=== PATIENT | female | born 1985 | race Caucasian/White ===

== ENCOUNTER 2016-07-01 09:53 | Emergency (ER) | payer OTHER ==
[2016-07-01] MEDS ORDERED: cloNIDine HCL 0.2 MG TAB PO STA (10:18)
[2016-07-01] MEDS ORDERED: METOCLOPRAMIDE 5 MG/ML 2 ML VIAL IVP STA (10:19)
[2016-07-01] MEDS ORDERED: diphenhydrAMINE 50 MG/ML 1 ML VIAL IVP STA (10:19)
[2016-07-01] MEDS ORDERED: KETOROLAC 30 MG/ML 1 ML VIAL IVP STA (10:19)
--- NOTE | 2016-07-01 10:24 | ED ---
Headache HPI - General Chief Complaint: Headache Stated Complaint: Headache Time Seen by Provider: 07/01/16 10:12 Source: RN notes reviewed Mode of arrival: ambulatory Limitations: no limitations - History of Present Illness Initial Comments: Patient is a 30-year-old female presents to the emergency room for evaluation of migraine headache. Patient states migraine began yesterday. Patient does state that she is on 0.2 of Catapres twice a day and misplaced her medication on Thursday. Patient states she's been without blood pressure medication since Thursday. Patient states that she managed to find one blood pressure pill in her purse yesterday and took it. Patient states last time she was unable to take her blood pressure medication for a few days she developed a headache similar to this. Patient states she is having a 7 out of 10 headache. Patient states she's been taking [id number] NSAIDs and Excedrin with no relief of symptoms. Patient states she is nauseous. Patient does admit to photophobia and phonophobia. Patient denies any changes in vision, shortness of breath, chest pain, ear pain. - Related Data Home Medications Medication Instructions Recorded Confirmed Albuterol Inhaler [Ventolin Hfa 2 puff INHALATION RT-Q6H PRN 01/08/16 07/01/16 Inhaler] Previous Rx's Medication Instructions Recorded FLUoxetine HCL [PROzac] 40 mg PO DAILY #14 capsule 04/14/16 cloNIDine HCL [Catapres] 0.2 mg PO BID #30 tab 04/14/16 cloNIDine HCL [Catapres] 0.2 mg PO BID 14 Days 07/01/16 Allergies Allergy/AdvReac Type Severity Reaction Status Date / Time No Known Allergies Allergy Verified 07/01/16 10:26 Review of Systems ROS Statement: Those systems with pertinent positive or pertinent negative responses have been documented in the HPI. ROS Other: All systems not noted in ROS Statement are negative. Past Medical History Past Medical History: Asthma, Hypertension Additional Past Medical History / Comment(s): MIGRAINE History of Any Multi-Drug Resistant Organisms: MRSA Date of last positivie culture/infection: 2009 MDRO Source:: foot Past Surgical History: No Surgical Hx Reported Past Psychological History: Depression Smoking Status: Current every day smoker Past Alcohol Use History: None Reported Past Drug Use History: None Reported General Exam - General Exam Comments Initial Comments: Sitting in exam room, no acute distress. Limitations: no limitations General appearance: alert, in no apparent distress Head exam: Present: atraumatic, normocephalic, normal inspection Eye exam: Present: normal appearance ENT exam: Present: normal exam Neck exam: Present: normal inspection Respiratory exam: Present: normal lung sounds bilaterally, respiratory distress Cardiovascular Exam: Present: normal rhythm, tachycardia, normal heart sounds Extremities exam: Present: normal inspection Neurological exam: Present: alert, oriented X3, CN II-XII intact, normal gait Expanded Speech: Present: fluid speech Cranial nerves: EOM's Intact: Normal Motor strength exam: RUE: 5, LUE: 5, RLE: 5, LLE: 5 Eye Response: (4) open spontaneously Motor Response: (6) obeys commands Verbal Response: (5) oriented Psychiatric exam: Present: normal affect, normal mood Skin exam: Present: warm, dry, intact, normal color. Absent: rash Course Vital Signs 07/01/16 07/01/16 07/01/16 09:56 11:32 12:00 Temperature 98.6 F Pulse Rate 130 H 115 H 93 Respiratory 16 16 15 Rate Blood Pressure 179/106 188/100 149/92 O2 Sat by Pulse 95 100 100 Oximetry Medical Decision Making - Medical Decision Making Patient is a 30-year-old female presents to the emergency room for evaluation of headache and high blood pressure. Patient's blood pressure on arrival was 179/106. Patient was given her normal dose of blood pressure medication. On reevaluation patient states she is feeling much better and headache has subsided. Patient's blood pressure has gone down to 149/92. Agreed to send patient home with prescription for her blood pressure medication until she can follow-up with her primary care provider. Patient states she understands everything that was discussed with her. Return parameters discussed. Case discussed with Dr. Miller. - Lab Data Result diagrams: 07/01/16 11:29 07/01/16 11:29 Lab Results 07/01/16 07/01/16 Range/Units 11:29 11:29 WBC 7.8 (3.8-10.6) k/uL RBC 5.41 H (3.80-5.40) m/uL Hgb 14.4 (11.4-16.0) gm/dL Hct 46.2 H (34.0-46.0) % MCV 85.4 (80.0-100.0) fL MCH 26.7 (25.0-35.0) pg MCHC 31.3 (31.0-37.0) g/dL RDW 16.4 H (11.5-15.5) % Plt Count 326 (150-450) k/uL Neutrophils % 49 % Lymphocytes % 40 % Monocytes % 6 % Eosinophils % 2 % Basophils % 0 % Neutrophils # 3.8 (1.3-7.7) k/uL Lymphocytes # 3.1 (1.0-4.8) k/uL Monocytes # 0.4 (0-1.0) k/uL Eosinophils # 0.1 (0-0.7) k/uL Basophils # 0.0 (0-0.2) k/uL Anisocytosis Slight Sodium 148 H (137-145) mmol/L Potassium 4.6 (3.5-5.1) mmol/L Chloride 109 H (98-107) mmol/L Carbon Dioxide 25 (22-30) mmol/L Anion Gap 14 mmol/L BUN 11 (7-17) mg/dL Creatinine 0.66 (0.52-1.04) mg/dL Est GFR (MDRD) Af Amer >60 (>60 ml/min/1.73 sqM) Est GFR (MDRD) Non-Af >60 (>60 ml/min/1.73 sqM) Glucose 97 (74-99) mg/dL Calcium 9.7 (8.4-10.2) mg/dL Total Bilirubin 0.6 (0.2-1.3) mg/dL AST 30 (14-36) U/L ALT 41 (9-52) U/L Alkaline Phosphatase 103 (38-126) U/L Total Protein 8.1 (6.3-8.2) g/dL Albumin 4.7 (3.5-5.0) g/dL Disposition Clinical Impression: Headache, Hypertension Disposition: HOME SELF-CARE Condition: Good Instructions: Hypertension (ED) Additional Instructions: Take medications as directed. Please follow up with primary care provider. If any new symptom arises, symptoms worsen or fever develops, return to ER as soon as possible. Prescriptions: cloNIDine HCL [Catapres] 0.2 mg PO BID 14 Days Referrals: Geo Capm MD [Primary Care Provider] - 1-2 days Time of Disposition: 12:14
[2016-07-01 11:48] LABS: Anisocytosis Slight; Basophils % (A) 0 %; CH 27.2; Eosinophils # (A) 0.1 k/uL (0-0.7); Eosinophils % (A) 2 %; HCT 46.2 % (34.0-46.0); HDW 2.78; HGB 14.4 gm/dL (11.4-16.0); Luc % (Auto) 4; Lymphocytes # (A) 3.1 k/uL (1.0-4.8); Lymphocytes % (A) 40 %; MCH 26.7 pg (25.0-35.0); MCHC 31.3 g/dL (31.0-37.0); MCV 85.4 fL (80.0-100.0); Mean Platelet Volume 8.1; Monocytes # (A) 0.4 k/uL (0-1.0); Monocytes % (A) 6 %; Neutrophils # (A) 3.8 k/uL (1.3-7.7); Neutrophils % (A) 49 %; RBC 5.41 m/uL (3.80-5.40); RDW 16.4 % (11.5-15.5); WBC 7.8 k/uL (3.8-10.6); WBC (Perox) 8.03
[2016-07-01 12:03] LABS: ALT 41 U/L (9-52); AST 30 U/L (14-36); Alkaline Phosphatase 103 U/L (38-126); Anion Gap 14 mmol/L; Blood Urea Nitrogen 11 mg/dL (7-17); Calcium 9.7 mg/dL (8.4-10.2); Carbon Dioxide 25 mmol/L (22-30); Chloride 109 mmol/L (98-107); Glucose 97 mg/dL (74-99); Non-African American GFR(MDRD) >60 (>60 ml/min/1.73 sqM); Potassium 4.6 mmol/L (3.5-5.1); Sodium 148 mmol/L (137-145); Total Bilirubin 0.6 mg/dL (0.2-1.3); Total Protein 8.1 g/dL (6.3-8.2)
[2016-07-01 12:25] VITALS: BP 144/95; PULSE 94; RESP 18; TEMP 98
== END 2016-07-01 12:30 | disposition home or self-care (01) ==
LOC: EC 09:53
DX: R51 Headache (principal); I10 Essential (primary) hypertension; R00.0 Tachycardia, unspecified; F32.9 Major depressive disorder, single episode, unspecified; F17.200 Nicotine dependence, unspecified, uncomplicated; Z79.899 Other long term (current) drug therapy
CPT/HCPCS: 99284; 96374; 96375 ×2; 36415; 80053; 85025; J1200; J2765; J1885

== ENCOUNTER 2016-07-30 13:08 | Emergency (ER) | payer OTHER ==
[2016-07-30] MEDS ORDERED: LORazepam 2 MG/ML SYRINGE IM STA (13:48)
[2016-07-30 13:58] VITALS: PULSE 140
[2016-07-30 13:59] VITALS: TEMP 97.3
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
[2016-07-30 15:50] VITALS: BP 160/99; RESP 22
== END 2016-07-30 15:51 | disposition home or self-care (01) ==
LOC: EC 13:08
DX: F41.0 Panic disorder [episodic paroxysmal anxiety] (principal); R06.4 Hyperventilation; I10 Essential (primary) hypertension; F32.9 Major depressive disorder, single episode, unspecified; F17.200 Nicotine dependence, unspecified, uncomplicated; Z86.14 Personal history of Methicillin resistant Staphylococcus aureus infection; Z79.899 Other long term (current) drug therapy
CPT/HCPCS: 82075; 93005; 80306; 99283; 96372; J2060

== ENCOUNTER 2016-10-20 10:06 | Emergency (ER) | payer OTHER ==
[2016-10-20] MEDS ORDERED: ACYCLOVIR 800 MG TAB PO STA (10:41)
[2016-10-20] MEDS ORDERED: Acetaminophen-Codeine 300-30mg TAB PO STA (10:41)
[2016-10-20] MEDS ORDERED: cloNIDine HCL 0.1 MG TAB PO STA (10:41)
[2016-10-20] MEDS ORDERED: LORazepam 1 MG TAB PO STA (10:43)
--- NOTE | 2016-10-20 10:46 | ED ---
General Adult HPI - General Chief complaint: Nausea/Vomiting/Diarrhea Stated complaint: vaginal pain Time Seen by Provider: 10/20/16 10:26 Source: patient, RN notes reviewed, old records reviewed Mode of arrival: ambulatory Limitations: no limitations - History of Present Illness Initial comments: Is a 31-year-old female here for evaluation. She comes in for evaluation of herpes outbreak and being off her blood pressure medications. Patient does admit to increased stress in life, stress with her housing situation secondary to bedbugs. Patient states during stressful situations she can have outbreak and has been having severe itching and pain in her vaginal area with a recurrent herpes outbreak. Patient denies any other complaints - Related Data Home Medications Medication Instructions Recorded Confirmed Albuterol Inhaler [Ventolin Hfa 2 puff INHALATION RT-Q6H PRN 01/08/16 07/30/16 Inhaler] Previous Rx's Medication Instructions Recorded LORazepam [Ativan] 1 mg PO ONCE PRN #4 tab 07/30/16 Acetaminophen with Codeine 1 tab PO Q4H PRN #20 tab 10/20/16 [Tylenol w/codeine #3] Acyclovir [Zovirax] 800 mg PO TID #30 tab 10/20/16 FLUoxetine HCL [PROzac] 40 mg PO DAILY #14 capsule 10/20/16 cloNIDine HCL [Catapres] 0.2 mg PO BID #30 tab 10/20/16 Allergies Allergy/AdvReac Type Severity Reaction Status Date / Time No Known Allergies Allergy Verified 07/30/16 14:16 Review of Systems ROS Statement: Those systems with pertinent positive or pertinent negative responses have been documented in the HPI. ROS Other: All systems not noted in ROS Statement are negative. Past Medical History Past Medical History: Asthma, Hypertension Additional Past Medical History / Comment(s): MIGRAINE History of Any Multi-Drug Resistant Organisms: MRSA Date of last positivie culture/infection: 2009 MDRO Source:: foot Past Surgical History: No Surgical Hx Reported Past Psychological History: Anxiety, Depression Smoking Status: Current every day smoker Past Alcohol Use History: None Reported Past Drug Use History: None Reported General Exam Limitations: no limitations General appearance: alert, in no apparent distress Head exam: Present: atraumatic, normocephalic, normal inspection Eye exam: Present: normal appearance, PERRL, EOMI. Absent: scleral icterus, conjunctival injection, periorbital swelling ENT exam: Present: normal exam, mucous membranes moist Neck exam: Present: normal inspection. Absent: tenderness, meningismus, lymphadenopathy Respiratory exam: Present: normal lung sounds bilaterally. Absent: respiratory distress, wheezes, rales, rhonchi, stridor Cardiovascular Exam: Present: regular rate, normal rhythm, normal heart sounds. Absent: systolic murmur, diastolic murmur, rubs, gallop, clicks GI/Abdominal exam: Present: soft, normal bowel sounds. Absent: distended, tenderness, guarding, rebound, rigid Extremities exam: Present: normal inspection, full ROM, normal capillary refill. Absent: tenderness, pedal edema, joint swelling, calf tenderness Back exam: Present: normal inspection Neurological exam: Present: alert, oriented X3, CN II-XII intact Psychiatric exam: Present: normal affect, normal mood Skin exam: Present: warm, dry, intact, normal color. Absent: rash Course Vital Signs 10/20/16 10/20/16 10:12 10:36 Temperature 98 F 98.2 F Pulse Rate 124 H 73 Respiratory 22 20 Rate Blood Pressure 190/107 128/83 O2 Sat by Pulse 96 99 Oximetry Medical Decision Making - Medical Decision Making 31 female the ER for evaluation of herpes outbreak, in exacerbation. Patient will be treated appropriately and discharged home Disposition Clinical Impression: Genital herpes, Hypertension Disposition: HOME SELF-CARE Condition: Good Instructions: Genital Herpes Simplex (ED) Prescriptions: Acetaminophen with Codeine [Tylenol w/codeine #3] 1 tab PO Q4H PRN #20 tab PRN Reason: Pain Acyclovir [Zovirax] 800 mg PO TID #30 tab FLUoxetine HCL [PROzac] 40 mg PO DAILY #14 capsule cloNIDine HCL [Catapres] 0.2 mg PO BID #30 tab Referrals: Ernie Carter MD [Primary Care Provider] - 1-2 days
[2016-10-20 11:43] VITALS: BP 170/100; PULSE 124; RESP 15; TEMP 97.3
== END 2016-10-20 11:50 | disposition home or self-care (01) ==
LOC: EC 10:06
DX: A60.00 Herpesviral infection of urogenital system, unspecified (principal); I10 Essential (primary) hypertension; F17.200 Nicotine dependence, unspecified, uncomplicated
CPT/HCPCS: 99283

== ENCOUNTER 2016-11-10 09:56 | Emergency (ER) | payer OTHER ==
[2016-11-10] MEDS ORDERED: diphenhydrAMINE 50 MG/ML 1 ML VIAL IVP STA (10:22)
[2016-11-10] MEDS ORDERED: METOCLOPRAMIDE 5 MG/ML 2 ML VIAL IVP STA (10:22)
[2016-11-10] MEDS ORDERED: SODIUM CHLORIDE 0.9% 1,000 ML IV STA (10:22)
[2016-11-10] MEDS ORDERED: KETOROLAC 30 MG/ML 1 ML VIAL IVP STA (10:22)
--- NOTE | 2016-11-10 10:25 | ED ---
General Adult HPI - General Chief complaint: Headache Stated complaint: Headache Time Seen by Provider: 11/10/16 10:17 Source: patient, EMS, RN notes reviewed Mode of arrival: EMS Limitations: no limitations - History of Present Illness Initial comments: Patient is a 31-year-old female with significant past medical history for migraine. Patient does admit that she woke up with migraine this morning. States that she's tried Fioricet at home with little relief the symptoms. Patient does admit that it's located on the side of her head. Admits to photosensitivity. Admits to nausea. Denies any other complaints or symptoms at this time. States all symptoms are consistent with migraines that she's had in the past. Patient denies any recent fever, chills, shortness of breath, chest pain, back pain, abdominal pain, vomiting, numbness or tingling, dysuria or hematuria, constipation or diarrhea, visual changes, or any other complaints. - Related Data Home Medications Medication Instructions Recorded Confirmed Albuterol Inhaler [Ventolin Hfa 2 puff INHALATION RT-BID PRN 01/08/16 11/10/16 Inhaler] Ascorbic Acid [Vitamin C] 500 mg PO DAILY 10/20/16 11/10/16 Cyanocobalamin [Vitamin B-12] 500 mcg PO DAILY 10/20/16 11/10/16 Acyclovir [Zovirax] 800 mg PO TID PRN 11/10/16 11/10/16 Butalb/APAP/Caff 50-325-40Mg 1 tab PO Q4H PRN 11/10/16 11/10/16 [Fioricet 50-325-40] Previous Rx's Medication Instructions Recorded Acetaminophen with Codeine 1 tab PO Q4H PRN #20 tab 10/20/16 [Tylenol w/codeine #3] FLUoxetine HCL [PROzac] 40 mg PO DAILY #14 capsule 10/20/16 cloNIDine HCL [Catapres] 0.2 mg PO BID #30 tab 10/20/16 Allergies Allergy/AdvReac Type Severity Reaction Status Date / Time No Known Allergies Allergy Verified 11/10/16 10:18 Review of Systems ROS Statement: Those systems with pertinent positive or pertinent negative responses have been documented in the HPI. ROS Other: All systems not noted in ROS Statement are negative. Past Medical History Past Medical History: Asthma, Hypertension Additional Past Medical History / Comment(s): MIGRAINE History of Any Multi-Drug Resistant Organisms: MRSA Date of last positivie culture/infection: 2009 MDRO Source:: foot Past Surgical History: No Surgical Hx Reported Past Psychological History: Anxiety, Depression Smoking Status: Current every day smoker Past Alcohol Use History: None Reported Past Drug Use History: None Reported General Exam - General Exam Comments Initial Comments: General: The patient is awake and alert, in no distress, and does not appear acutely ill. Eye: Pupils are equal, round and reactive to light, extra-ocular movements are intact. No nystagmus. There is normal conjunctiva bilaterally. No signs of icterus. Ears, nose, mouth and throat: There are moist mucous membranes and no oral lesions. Neck: The neck is supple, there is no tenderness or JVD. Cardiovascular: There is a regular rate and rhythm. No murmur, rub or gallop is appreciated. Respiratory: Lungs are clear to auscultation, respirations are non-labored, breath sounds are equal. No wheezes, stridor, rales, or rhonchi. Gastrointestinal: Soft, non-distended, non-tender abdomen without masses or organomegaly noted. There is no rebound or guarding present. No CVA tenderness. Bowel sounds are unremarkable. Musculoskeletal: Normal ROM, no tenderness. Strength 5/5. Sensation intact. Pulses equal bilaterally 2+. Neurological: A&O x 3. CN II-XII intact, There are no obvious motor or sensory deficits. Coordination appears grossly intact. Speech is normal. Skin: Skin is warm and dry and no rashes or lesions are noted. Psychiatric: Cooperative, appropriate mood & affect, normal judgment. Limitations: no limitations Course Vital Signs 11/10/16 09:58 Temperature 98.1 F Pulse Rate 122 H Respiratory 20 Rate Blood Pressure 157/92 O2 Sat by Pulse 94 L Oximetry Medical Decision Making - Medical Decision Making Patient 31-year-old female with significant past medical history for migraines, who presents to emergency room today with a migraine headache. Patient was going to be given IV medications with a liter bolus spots nursing staff unable to obtain IV access. Patient is a former IV drug user. At this time options were discussed with patient about IM medications. She states she would like rather do this. Patient was given IM Toradol, Reglan, with by mouth Benadryl. Patient be discharged home advised dark quiet room. Advised follow-up family doctor. Advised return for any other concerns. She states understanding and is in agreement. Disposition Clinical Impression: Migraine Disposition: HOME SELF-CARE Condition: Good Instructions: Migraine Headache (ED) Additional Instructions: Please follow-up with family doctor in the next 2 days of symptoms have not improved. Please return to emergency room if the symptoms increase or worsen or for any other concerns. Referrals: Ernie Carter MD [Primary Care Provider] - 1-2 days Time of Disposition: 11:01
[2016-11-10] MEDS ORDERED: METOCLOPRAMIDE 5 MG/ML 2 ML VIAL IM STA (11:00)
[2016-11-10] MEDS ORDERED: KETOROLAC 60 MG/2 ML VIAL IM STA (11:00)
[2016-11-10] MEDS ORDERED: diphenhydrAMINE 50 MG CAP PO STA (11:00)
[2016-11-10 11:22] VITALS: BP 158/103; PULSE 82; RESP 18; TEMP 99.3
== END 2016-11-10 11:23 | disposition home or self-care (01) ==
LOC: EC 09:56
DX: G43.909 Migraine, unspecified, not intractable, without status migrainosus (principal); F17.200 Nicotine dependence, unspecified, uncomplicated; Z79.899 Other long term (current) drug therapy
CPT/HCPCS: 99283; 96372 ×2; J2765; J1885